=== PATIENT | female | born 1990 | race Caucasian/White ===

== ENCOUNTER → 2023-10-08 17:30 | Outpatient (REF) | payer BC, SELFPAY | LOC: PNTC 17:30 | PROVIDERS: ATTENDING PHYSICIAN Obstetrics & Gynecology | DX: Z34.02 Encounter for supervision of normal first pregnancy, second trimester (principal) | CPT/HCPCS: 36415; 86850; 86900; 86901; J2790 ==

== ENCOUNTER 2023-12-30 20:05 | Inpatient (IN) | payer BC, SELFPAY ==
[2023-12-30 20:14] VITALS: BP 132/82; BMI 30.2
[2023-12-30 21:08] LABS: % Basophils 0.3 % (0-2); % Eosinophils 0.7 % (0-6); % Immature Granulocytes 0.6 % (0-0.5); % Lymphocytes 20.8 % (20.5-51.1); % Monocytes 5.7 % (1.7-9.3); % Neutrophils 71.9 % (42.2-75.2); Absolute Eosinophils 0.1 10^3/uL (0-0.7); Absolute Immature Granulocytes 0.1 10^3/uL (0-0.05); Absolute Lymphocytes 2.5 10^3/uL (1.2-3.4); Absolute Monocytes 0.7 10^3/uL (0.1-0.6); Absolute Neutrophils 8.5 10^3/uL (1.4-6.5); Hematocrit 32.3 % (37.0-47.0); Hemoglobin 11.5 g/dL (12.0-16.0); Mean Corp Hgb Conc. 35.6 g/dL (33.0-37.0); Mean Corpuscular Hgb 30.7 pg (27.0-31.0); Mean Corpuscular Volume 86.4 fL (81.0-99.0); Mean Platelet Volume 10.6 fL (7.4-10.4); Nucleated Red Blood Cells % 0 %; Platelet Count 244 10^3/uL (130-400); Red Blood Cell Count 3.74 10^6/uL (4.20-5.40); Red Cell Dist. Width 13.3 % (11.5-14.5); White Blood Cell Count 11.8 10^3/uL (4.8-10.8)
[2023-12-30] MEDS: PENICILLIN 110 UNITS IV (21:17)
[2023-12-30] MEDS: LR 1000 IV (21:17)
[2023-12-30] MEDS: SUBLIMAZE 100 MCG EPIDURAL (21:28)
[2023-12-30] MEDS: FENTANYL/BUPIVACAINE 100 EPIDURAL (21:29)
[2023-12-31] MEDS: PENICILLIN 55 UNITS IV ×3 (00:54→08:59)
[2023-12-31] MEDS: PITOCIN 30 UNITS/NSS 500 ML IV (00:56)
[2023-12-31] MEDS: MOTRIN 600 MG PO (15:19)
[2024-01-01] MEDS: MOTRIN 600 MG PO ×4 (00:54→22:58)
[2024-01-01 05:18] LABS: Hematocrit 28.4 % (37.0-47.0); Hemoglobin 9.9 g/dL (12.0-16.0)
[2024-01-01] MEDS: SENOKOT-S 1 TABLET PO (09:18)
[2024-01-01] MEDS: PRENATAL PLUS PO (09:19)
[2024-01-01 11:54] LABS: Syphilis/T. pallidum Ab Reflex Negative (Negative)
[2024-01-01] MEDS: FEOSOL 325 MG PO (15:48)
[2024-01-02] MEDS: MOTRIN 600 MG PO ×2 (06:22→12:35)
[2024-01-02] MEDS: PRENATAL PLUS 1 TABLET PO (09:15)
[2024-01-02] MEDS: FEOSOL 325 MG PO (09:15)
[2024-01-02] MEDS: SENOKOT-S 1 TABLET PO (09:16)
== END 2024-01-02 13:00 | disposition home or self-care (01) | DRG 807 ==
LOC: LDRP 20:05
PROVIDERS: Obstetrics & Gynecology; ADMITTING PHYSICIAN Obstetrics & Gynecology; FAMILY PHYSICIAN Family Medicine
PROC: 4A1HXCZ Monitoring of Products of Conception, Cardiac Rate, External Approach (ICD-10-PCS; 2023-12-31)
PROC: 10E0XZZ Delivery of Products of Conception, External Approach (ICD-10-PCS; 2023-12-31)
PROC: 0W8NXZZ Division of Female Perineum, External Approach (ICD-10-PCS; 2023-12-31)
DX: O48.0 Post-term pregnancy (principal); Z37.0 Single live birth; O99.824 Streptococcus B carrier state complicating childbirth; O77.0 Labor and delivery complicated by meconium in amniotic fluid; O76 Abnormality in fetal heart rate and rhythm complicating labor and delivery; Z3A.40 40 weeks gestation of pregnancy
CPT/HCPCS: 88307; 36415; 85014; 85018; 85025; 86780; 86850; 86870; 86900; 86901

== ENCOUNTER → 2024-12-29 09:50 | Outpatient (REF) | payer BC, SELFPAY | LOC: PNTC 09:50 | PROVIDERS: ATTENDING PHYSICIAN Obstetrics & Gynecology | DX: Z36.0 Encounter for antenatal screening for chromosomal anomalies (principal); Z36.82 Encounter for antenatal screening for nuchal translucency | CPT/HCPCS: 76801; 76813 ==

== ENCOUNTER → 2025-02-16 13:20 | Outpatient (REF) | payer BC, SELFPAY | LOC: PNTC 13:20 | PROVIDERS: ATTENDING PHYSICIAN Obstetrics & Gynecology | DX: Z34.90 Encounter for supervision of normal pregnancy, unspecified, unspecified trimester (principal) | CPT/HCPCS: 76811; 76817 ==

== ENCOUNTER → 2025-04-13 13:44 | Outpatient (REF) | payer BC, SELFPAY | LOC: PNTC 13:44 | PROVIDERS: ATTENDING PHYSICIAN Obstetrics & Gynecology | DX: Z34.82 Encounter for supervision of other normal pregnancy, second trimester (principal) | CPT/HCPCS: 36415; 86850; 86900; 86901; 96372; J2790 ==